=== PATIENT | male | born 1955 | race Caucasian/White ===

== ENCOUNTER 2025-03-18 16:03 | Emergency (ER) | payer MEDICARE ==
[~2025-03-18] VITALS: Ht 177.8 cm; Wt 72.6 kg
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
[2025-03-18 17:27] LABS: IMMATURE GRANULOCYTE ABSOLUTE 0.03 K/uL (0-1); NUCLEATED RED BLOOD CELLS 0.0 % (0.0-0.19); PLATELET COUNT (AUTO) 223 K/uL (130-400); RED BLOOD CELL COUNT(AUTO) 4.89 MIL/uL (4.50-6.20); RED CELL DISTRIBUTION WIDTH 16.4 % (11.0-15.5); WHITE BLOOD COUNT (AUTO) 7.1 K/uL (4.8-10.8)
[2025-03-18 17:33] LABS: CREATININE 1.1 mg/dL (0.5-1.3); GLOMERULAR FILTR. RATE CALC 73.0 mL/min (>90); GLUCOSE,RANDOM 100.0 mg/dL (70-105); SODIUM SERUM 135.0 mmol/L (136-145); UREA NITROGEN, BLOOD 19.0 mg/dL (7-18)
[2025-03-18 18:46] VITALS: BP 136/82; PULSE 67; RESP 16; TEMP 98.1; O2SAT 98
--- NOTE | 2025-03-18 19:28 | HMCIMG ---
EXAMINATION Ultrasound right groin CLINICAL HISTORY Rule out incarceration. TECHNIQUE Grayscale and color Doppler ultrasound of the right groin was performed. COMPARISON None. FINDINGS RIGHT INGUINAL REGION Sonography was performed over the area of concern. Said right inguinal hernia containing a bowel loop measures 5.6 x 2.8 cm and is found to be reducible when the patient is in the supine, resting position, the color Doppler shows low?resistance arterial flow within the herniated tissue. No sonographic evidence of incarceration, strangulation, or fluid collection as per the given document. IMPRESSION Above described findings warrant further evaluation. Recommend contrast-enhanced CT imaging of the abdomen and pelvis for further evaluation. /Bereket
== END 2025-03-18 18:46 | disposition home or self-care (01) ==
LOC: EDH 16:03
DX: K43.9 Ventral hernia without obstruction or gangrene (principal); N18.2 Chronic kidney disease, stage 2 (mild); E86.0 Dehydration
CPT/HCPCS: 36415; 76882; 80048; 83690; 85025; 99284